=== PATIENT | female | born 1985 | race Caucasian/White ===

== ENCOUNTER → 2019-02-19 | Outpatient (CLI) | payer BC ==
[~2019-02-19] MED LIST: AMIT-106 PO; CITA-156 PO; CLON-303 PO; DESO1TAB24 PO; DESO1TAB32 PO; MULT1TAB54 PO; OXYC-865 PO; PROP10TA58 PO
--- NOTE | 2019-02-19 15:11 | EKG ---
FACILITY: [facility] - [place] PATIENT NAME: STACY MAURICIO : [id number] MR: [id number] V: [id number] EXAM DATE: ORDERING PHYSICIAN: SANDRA EMERY TECHNOLOGIST: EASTON Test Reason : HEART PALPITATIONS Blood Pressure : / mmHG Vent. Rate : 063 BPM Atrial Rate : 063 BPM P-R Int : 150 ms QRS Dur : 084 ms QT Int : 386 ms P-R-T Axes : 062 064 035 degrees QTc Int : 395 ms Normal sinus rhythm with sinus arrhythmia Normal ECG No previous ECGs available Confirmed by SANDRA EMERY ([id number]) on 02/19/2019 3:58:48 PM Referred By: ALTON Confirmed By:SANDRA EMERY
[2019-02-19 15:17] LABS: PLATELET COUNT, AUTOMATED 287 K/uL (150-450)
== END ==
LOC: RESP 14:08
PROVIDERS: ATTEND Internal Medicine
DX: R03.0 Elevated blood-pressure reading, without diagnosis of hypertension (principal); R00.2 Palpitations; F41.1 Generalized anxiety disorder
CPT/HCPCS: 36415; 81001; 82040; 82247; 82310; 82374; 82435; 82465; 82565; 82947; 83718; 84075; 84132; 84155; 84295; 84443; 84450; 84460; 84478; 84520; 85025